=== PATIENT | female | born 1995 | race Caucasian/White ===

== ENCOUNTER 2018-07-27 20:35 | Observation (INO) | payer OTHER ==
[~2018-07-27] VITALS: Ht 157.5 cm; Wt 122.5 kg
[2018-07-27] MEDS ORDERED: RINGERS SOLUTION,LACTATED 1,000 ML IV SCH (21:25)
[2018-07-27] MEDS ORDERED: METOCLOPRAMIDE HCL 5 MG/ML 2 ML VIAL IVP ONE (21:30)
[2018-07-27 21:40] VITALS: BP 107/58
[2018-07-27 21:56] LABS: APPEARANCE,URINE CLOUDY (CLEAR); BILIRUBIN,URINE PRELIM. POSITIVE (NEGATIVE); GLUCOSE, URINE (UA) NEGATIVE (NEGATIVE); KETONES,URINE >=80 mg/dL (NEGATIVE); LEUKOCYTE ESTERASE ,URINE TRACE (NEGATIVE); NITRATE,URINE NEGATIVE (NEGATIVE); OCCULT BLOOD,URINE SMALL (NEGATIVE); PROTEIN,URINE SEE CONFIRM (NEGATIVE)
[2018-07-27 22:08] LABS: BACTERIA,URINE Few /HPF (None Seen); SQUAMOUS EPITHELIAL CELL,UR Moderate /LPF (None Seen); SULFOSALICYLIC ACID,URINE 3+ (Negative); WBC,URINE 0-2 /HPF (0-5)
[2018-07-27] MEDS ORDERED: PREN1TAB80 PO (22:17)
[2018-07-27] MEDS ORDERED: LIDOCAINE/PF 1% 30 ML VIAL ONE (22:41)
[2018-07-27] MEDS ORDERED: LIDOCAINE/PF 1% 30 ML VIAL INJ PRN (22:45)
[2018-07-28] MEDS ORDERED: RINGERS SOLUTION,LACTATED 1,000 ML IV SCH (02:00)
[2018-07-28 08:31] LABS: APPEARANCE,URINE TURBID (CLEAR); GLUCOSE, URINE (UA) NEGATIVE (NEGATIVE); KETONES,URINE 40 mg/dL (NEGATIVE); LEUKOCYTE ESTERASE ,URINE SMALL (NEGATIVE); NITRATE,URINE NEGATIVE (NEGATIVE); OCCULT BLOOD,URINE SMALL (NEGATIVE); PROTEIN,URINE POS 1+ (NEGATIVE)
[2018-07-28 08:35] LABS: BILIRUBIN,URINE PRELIM. POSITIVE (NEGATIVE)
[2018-07-28 08:36] LABS: SQUAMOUS EPITHELIAL CELL,UR Many /LPF (None Seen)
[2018-07-28 08:37] LABS: BACTERIA,URINE Moderate /HPF (None Seen)
== END 2018-07-28 09:30 | disposition home or self-care (01) ==
LOC: 4S 20:35
PROVIDERS: ADMIT Obstetrics & Gynecology; ATTEND Obstetrics & Gynecology
DX: O21.2 Late vomiting of pregnancy (principal); E86.0 Dehydration; O26.892 Other specified pregnancy related conditions, second trimester; R51 Headache; Z3A.21 21 weeks gestation of pregnancy
CPT/HCPCS: 76805; 80307 ×8; 81001 ×2; 81002; 87086; 96361; 96374; G0378 ×2; J2765; J3490; J7120